=== PATIENT | female | born 1950 | race Caucasian/White ===

== ENCOUNTER 2017-10-19 06:55 | Emergency (ER) | payer MEDICARE, BC ==
[~2017-10-19] VITALS: Ht 152.4 cm; Wt 73.5 kg
[2017-10-19] MEDS ORDERED: ONDANSETRON HCL INJ 2 MG/ML VIAL IM STA (07:12)
[2017-10-19] MEDS ORDERED: SODIUM CHLORIDE 0.9% 1000ML 1,000 ML IV STA (07:12)
[2017-10-19] MEDS ORDERED: KETOROLAC TROMETHAMINE 30 MG/ML VIAL IM STA (07:12)
[2017-10-19 07:37] LABS: BASOPHILS % 0.2 % (0.0-1.0); EOSINOPHILS # (AUTO) 0.1 (0.0-0.4); EOSINOPHILS % 0.7 % (0.0-6.0); HEMATOCRIT 44.7 % (34.2-44.1); HEMOGLOBIN 16.2 g/dL (12.0-16.0); LYMPHOCYTES # (AUTO) 2.3 (1.0-3.2); LYMPHOCYTES % 27.5 % (18.0-39.1); MEAN CORPUSCULAR HEMOGLOBIN 33.2 pg (28-32); MEAN CORPUSCULAR HGB CONC 36.2 g/dL (31-35); MEAN CORPUSCULAR VOLUME 91.6 fL (81-99); MONOCYTES # (AUTO) 0.6 (0.2-0.8); MONOCYTES % 7.2 % (4.4-11.3); NEUTROPHILS # (AUTO) 5.4 (2.1-6.9); NEUTROPHILS % 64.2 % (38.7-80.0); PLATELET COUNT 135 x10e3/uL (140-360); RED BLOOD COUNT 4.88 x10e6/uL (3.6-5.1); RED CELL DISTRIBUTION WIDTH 12.1 % (11.7-14.4)
[2017-10-19 07:40] LABS: INR 1.09; PROTHROMBIN TIME 13.3 seconds (11.9-14.5)
[2017-10-19 07:41] LABS: PARTIAL THROMBOPLASTIN TIME 29.8 seconds (23.8-35.5)
--- NOTE | 2017-10-19 07:42 | Diagnostic Imaging Report ---
PROCEDURE: X-RAY CHEST, TWO VIEWS COMPARISON: None. INDICATIONS: LEFT LOWER ABDOMINAL PAIN 1 DAY FINDINGS: LUNGS: No consolidations or edema. PLEURA: No effusions or pneumothorax. HEART \T\ MEDIASTINUM: The heart is within normal size-limits. Tortuous thoracic aorta. BONES \T\ SOFT TISSUES: No acute findings. Clips in the upper abdomen. CONCLUSION: No acute thoracic abnormality. Luis A Lambert D.O. Dictated by: Luis A Lambert D.O. on 10/19/2017 at 7:43 Electronically approved by: Luis A Lambert D.O. on 10/19/2017 at 7:43
[2017-10-19 07:49] LABS: ALANINE AMINOTRANSFERASE 66 IU/L (0-55); ALBUMIN 3.5 g/dL (3.5-5.0); ALBUMIN/GLOBULIN RATIO 0.8 (0.8-2.0); ALKALINE PHOSPHATASE 108 IU/L (40-150); AMYLASE 67 U/L (25-125); ANION GAP 13.4 mmol/L (8-16); BLOOD UREA NITROGEN 10 mg/dL (7-26); BUN/CREATININE RATIO 13 (6-25); CALCIUM 9.5 mg/dL (8.4-10.2); CARBON DIOXIDE 22 mmol/L (22-29); CHLORIDE 103 mmol/L (98-107); CREATINE KINASE 50 IU/L (29-168); EST GLOMERULAR FILTRATION RATE > 60 ML/MIN (60-); GLUCOSE 161 mg/dL (74-118); LIPASE 32 U/L (8-78); POTASSIUM 3.4 mmol/L (3.5-5.1); SODIUM 135 mmol/L (136-145)
--- NOTE | 2017-10-19 07:54 | Diagnostic Imaging Report ---
PROCEDURE: CT ABDOMEN AND PELVIS WITHOUT CONTRAST TECHNIQUE: The abdomen and pelvis were scanned utilizing a multidetector helical scanner from the diaphragm to the lesser trochanter without IV or oral contrast material. Coronal and sagittal multiplanar reformations were obtained. DLP: 537.91 mGy-cm COMPARISON: None. INDICATIONS: LEFT LOWER ABD PAIN FINDINGS: ABSENCE OF INTRAVENOUS CONTRAST DECREASES SENSITIVITY FOR DETECTION OF FOCAL LESIONS AND VASCULAR PATHOLOGY. LOWER THORAX: Normal. HEPATOBILIARY: Focal exophytic lesion from the inferior aspect of the right lobe of the liver extends to the adjacent right renal margin is too small to characterize but could represent a small exophytic hemangioma. No biliary ductal dilatation. Clips from a prior cholecystectomy. SPLEEN: No splenomegaly. PANCREAS: No focal masses or ductal dilatation. ADRENALS: No adrenal nodules. KIDNEYS/URETERS: No hydronephrosis or solid mass lesions. There is a 3 mm left lower pole nonobstructing renal stone. PELVIC ORGANS/BLADDER: Unremarkable. PERITONEUM / RETROPERITONEUM: No free air or fluid. LYMPH NODES: No lymphadenopathy. VESSELS: Scattered vascular calcification. GI TRACT: Diverticula in the left colon. Focal area of wall thickening and pericolonic inflammatory stranding associated with diverticula in the distal descending colon/proximal sigmoid colon is compatible with acute diverticulitis (axial series, images 99-106). No perforation or abscess. The appendix is normal. BONES AND SOFT TISSUES: Mild degenerative changes of the spine. IMPRESSION: 1. Diverticulitis involving the distal descending colon/proximal sigmoid colon. 2. Nonobstructing left lower pole renal stone. Luis A Lambert D.O. Dictated by: Luis A Lambert D.O. on 10/19/2017 at 7:55 Electronically approved by: Luis A Lambert D.O. on 10/19/2017 at 7:55
[2017-10-19 08:40] VITALS: BP 125/84
[2017-10-19 08:58] LABS: CLARITY,URINE CLEAR (CLEAR); COLOR,URINE YELLOW (YELLOW)
[2017-10-19 08:59] LABS: BILIRUBIN,URINE NEGATIVE (NEGATIVE); KETONES,URINE NEGATIVE (NEGATIVE); LEUKOCYTE ESTERASE ,URINE TRACE (NEGATIVE); NITRITE,URINE NEGATIVE (NEGATIVE); PROTEIN,URINE DIPSTICK NEGATIVE (NEGATIVE); URINE UROBILINOGEN 0.2 mg/dL (0.2 - 1)
[2017-10-19 09:11] LABS: EPITHELIAL CELLS,URINE RARE /LPF
== END 2017-10-19 09:00 | disposition home or self-care (01) ==
LOC: ER 06:55
DX: R10.32 Left lower quadrant pain (principal); R11.0 Nausea; K57.32 Diverticulitis of large intestine without perforation or abscess without bleeding
CPT/HCPCS: 36415; 71046; 74176; 80053; 81001; 82150; 82550; 82553; 83690; 84484; 85025; 85610; 85730; 99284; J1885; J2405; J7030